=== PATIENT | male | born 1950 | race Caucasian/White ===

== ENCOUNTER → 2016-10-29 | Outpatient (CLI) | payer OTHER ==
--- NOTE | ~2016-10-29 | EKG ---
[address] [address] ELECTROCARDIOGRAM REPORT Name: [facility] LARA [id number]: [facility]/29/16 Attend Phys: Paras Galvez MD Discharge: Date of : 50 Report #: [id number] THIS REPORT FOR: //name// [facility] Test Date: 2016-10-29 Test Time: 13:08:46 Pat Name: SARA LARA Department: Room: Gender: M [employer]: TOMMY : 1950 Requested By: Paras Galvez Order Number: [id number] MD: Homer Bertrand Measurements Intervals [place] Rate: 55 P: 46 WI: 166 QRS: 23 QRSD: 102 T: 31 QT: 411 QTc: 393 Interpretive Statements Sinus bradycardia Otherwise no significant abnormalities No previous ECG available for comparison Electronically Signed On 10-30-2016 8:18:20 CDT by Homer Bertrand [email or web address] <ELECTRONICALLY SIGNED> By: Homer Bertrand MD, [facility] 10/30/16 0818 1308 1308 Homer Bertrand MD, FACC /EPI
== END ==
LOC: LITH 12:40
DX: N20.0 Calculus of kidney (principal)

== ENCOUNTER → 2019-05-06 | Outpatient (CLI) | payer OTHER | LOC: RAD 13:13 | DX: N20.0 Calculus of kidney (principal) ==